=== PATIENT | female | born 1955 | race Caucasian/White ===

== ENCOUNTER 2016-07-22 15:52 | Emergency (ER) | payer OTHER ==
--- NOTE | ~2016-07-22 | CT107 ---
[facility] A Service of [facility] RADIOLOGY TEXT RESULTS PATIENT: SANTOSH AJ LOCATION: SED : 59 UNIT #: [id number] AGE: [address]: Reji Ruiz MD SEX: F ORDER DR: [id number] [address] [address] [id number] E MR#: [id number] Acc #: [id number] NAME: SANTOSH AJ. : 1955 SEX: F STUDY DATE/TIME: 07/22/2016 16:49 UNIT: SED ROOM: STUDY DESCRIPTION: CT Pelvis Wo Cont Attending Physician: Reji Ruiz M.D. Ordering Physician: Reji Ruiz M.D. Primary Care Physician: José Miguel Dolan M.D. MEDICAL IMAGING REPORT This report is preliminary unless electronic signature is present. EXAM CT pelvis without contrast, 07/22/2016 HISTORY Inner right groin pain after lifting TV yesterday. History of back surgery, hysterectomy. TECHNIQUE Axial images performed through the pelvis without contrast. Multiplanar reconstructed images reviewed at a workstation. This CT exam was performed with one or more of the following radiation dose reduction techniques: automatic exposure control, adjustment of mA and/or kV according to patient size, and iterative reconstruction. FINDINGS Examination demonstrates several enlarged right inguinal lymph nodes, nonspecific but could be reactive due to soft tissue injury or infection. There is nonspecific induration surrounding the right iliofemoral vessels within the right pelvis and extending into the right groin. This is nonspecific could be inflammatory or post-traumatic in nature. No sizeable hematoma. No discernible hernia. Bladder unremarkable. Uterus absent. Visualized GI tract unremarkable. Multilevel degenerative disc disease seen in the lower lumbar spine. Ischial rectal fossa unremarkable. The hip joints and SI joints unremarkable. IMPRESSION 1. Several enlarged right inguinal lymph nodes are nonspecific but may be reactive in nature, possibly related to trauma or infection. 2. Nonspecific edema and induration surrounding the right femoral and right iliac vessels along the iliofemoral canal and inguinal canal. This is nonspecific but may represent the sequela of a strain or STS. [facility] A Service of [facility] RADIOLOGY TEXT RESULTS PATIENT: SANTOSH AJ LOCATION: SED : 59 UNIT #: [id number] AGE: [address]: Reji Ruiz MD SEX: F ORDER DR: possibly inflammatory process. Clearly no discernible hematoma or drainable fluid collection seen. 3. Degenerative disc disease lumbar spine. Dictated by... Lissy Bourgeois M.D. THIS IS AN ELECTRONICALLY VERIFIED REPORT Lissy Bourgeois M.D. at 07/23/2016 5:03 PM KULWINDER/ayala TD: 07/23/2016 03:21 JOB #: [id number] MEDICAL IMAGING REPORT
[~2016-07-22 15:52] MED LIST: ALPRAZOLAM PO; AMLODIPINE-BENA1 CA3 PO; AMOXICILLIN PO; ATIVAN PO; AUGMENTIN PO; AZOR 10/20 MG T1 TAB PO; BACTRIM DS TABL1 TA1 PO; BACTRIM DS TABL1 TAB PO; BENZONATATE PO; CADUET 10 MG/201 TAB PO; CIPRO PO; FLEXERIL PO; HCTZ PO; HYDROCHLOROTH12.5 MG PO; HYDROCHLOROTHIA25 MG PO; IBUPROFEN PO; IBUPROFEN800 MG PO; KCL; KEFLEX PO; KEFLEX500 M2 PO; KEFLEX500 MG PO; LASIX; LEVAQUIN750 M1 PO; LIDOCAINE VISCOU1 ML PO; LISINOPRIL; LORTAB 5/500 TA1 TA2 PO; LOTREL 10/20 CA1 CAP PO; LOTREL 10/20 MG1 CAP PO; MOTRIN600 MG PO; NO MEDICATIONS; NORVASC; NORVASC PO; PAXIL PO; PAXIL40 MG PO; PREDNISONE PO; PROTONIX PO; PROVENTIL INHALER; SUDAFED PO; TESSALON200 MG PO; ULTRAM PO; UNKNOWN MEDS; VICODIN 5/500 T1 TAB PO; ZOFRAN ODT4 MG PO
[2016-07-22 16:12] LABS: URINE SOURCE CLEAN CATCH
[2016-07-22 16:14] LABS: URINE APPEARANCE CLEAR; URINE BILIRUBIN NEG (NEG); URINE BLOOD 3+ (NEG); URINE COLOR YELLOW; URINE GLUCOSE NEG (NORM); URINE KETONE TRACE (NEG); URINE LEUKOCYTE ESTERASE NEG (NEG); URINE NITRATE NEG (NEG); URINE PH 5.5 (5-8); URINE PROTEIN TRACE (NEG); URINE SPECIFIC GRAVITY 1.025 (1.003-1.035); URINE UROBILINOGEN 0.2 MG/DL (NORM)
[2016-07-22 16:19] LABS: MICRO INDICATED? YES
[2016-07-22 16:26] LABS: CULTURE INDICATED? NO; URINE BACTERIA NEG (NEG); URINE MUCUS PRESENT; URINE RBC 25-50 /[HPF] (0-2); URINE SQUAMOUS EPITHELIAL CELL MODERATE /[HPF]
== END 2016-07-22 17:40 | disposition home or self-care (01) ==
LOC: SED 15:52
PROVIDERS: Emergency Medicine
DX: S39.011A Strain of muscle, fascia and tendon of abdomen, initial encounter (principal); N39.0 Urinary tract infection, site not specified; F41.9 Anxiety disorder, unspecified; Z85.850 Personal history of malignant neoplasm of thyroid; Z79.899 Other long term (current) drug therapy; X50.0XXA Overexertion from strenuous movement or load, initial encounter
CPT/HCPCS: 72192; 76376; 81003; 99284

== ENCOUNTER 2016-08-08 13:41 | Emergency (ER) | payer OTHER ==
--- NOTE | ~2016-08-08 | CR63 ---
[facility]. [facility] A Service of [facility] RADIOLOGY TEXT RESULTS PATIENT: SANTOSH AJ LOCATION: SED : 59 UNIT #: [id number] AGE: [address]: Arias Weston MD SEX: F ORDER DR: [id number] [place] [id number] E MR#: [id number] Acc #: [id number] NAME: SANTOSH AJ. : 1955 SEX: F STUDY DATE/TIME: 08/08/2016 1250 UNIT: SED ROOM: STUDY DESCRIPTION: CR Chest 2 View Attending Physician: Arias Weston M.D. Ordering Physician: Arias Weston M.D. Primary Care Physician: Dora Lloyd M.D. MEDICAL IMAGING REPORT This report is preliminary unless electronic signature is present. EXAM Chest 2 views 08/08/2016 at 1250 hours HISTORY 60-year-old with cough, congestion and dizziness for a few weeks. COMPARISON STUDIES 05/30/2013 FINDINGS Upright PA and lateral views of the chest demonstrate normal heart size with stable tortuous descending thoracic aorta. The pulmonary vascularity is normal. The lungs are well expanded and clear and there are no effusions. IMPRESSION No acute cardiopulmonary findings. No appreciable change from 05/30/2013. Dictated by... Anai Araujo M.D. THIS IS AN ELECTRONICALLY VERIFIED REPORT Anai Araujo M.D. at 08/08/2016 6:58 PM Brooks TD: 08/08/2016 16:50 JOB #: [id number] MEDICAL IMAGING REPORT
[2016-08-08 12:49] LABS: INFLUENZA A NEG (NEG); INFLUENZA B NEG (NEG)
== END 2016-08-08 13:43 | disposition home or self-care (01) ==
LOC: SED 13:41
PROVIDERS: Emergency Medicine
DX: J06.9 Acute upper respiratory infection, unspecified (principal)
CPT/HCPCS: 71020; 87804; 96372; 99283; J1885

== ENCOUNTER 2016-11-21 22:01 | Emergency (ER) | payer OTHER | END 2016-11-21 23:59 | disposition home or self-care (01) | LOC: CFTX 22:01 → CED 22:01 → CFTX 23:59 | DX: S70.12XA Contusion of left thigh, initial encounter (principal); I10 Essential (primary) hypertension; F41.9 Anxiety disorder, unspecified; W08.XXXA Fall from other furniture, initial encounter; Y92.096 Garden or yard of other non-institutional residence as the place of occurrence of the external cause | CPT/HCPCS: 99283 ==

== ENCOUNTER 2017-01-28 04:09 | Emergency (ER) | payer OTHER | END 2017-01-28 05:14 | disposition home or self-care (01) | LOC: CED 04:09 | DX: Z76.0 Encounter for issue of repeat prescription (principal); I10 Essential (primary) hypertension; F32.9 Major depressive disorder, single episode, unspecified | CPT/HCPCS: 99282 ==